=== PATIENT | female | born 1990 | race American Indian/Alaskan Native ===

== ENCOUNTER 2019-08-18 01:39 | Emergency (ER) | payer SELFPAY ==
[2019-08-18] MEDS ORDERED: Ondansetron 4 MG/2 ML SDV IVPUSH ONE (02:43)
[2019-08-18] MEDS ORDERED: Sodium Chloride 0.9% 1,000 ML IV SCH (02:45)
--- NOTE | 2019-08-18 02:51 | EDM.PDOC ---
ED HPI GENERAL MEDICAL PROBLEM - General Chief Complaint: Abdominal Pain Stated Complaint: RIGHT SIDE PAIN Time Seen by Provider: 08/18/19 01:49 Source of Information: Reports: Patient, Family () History Limitations: Reports: No Limitations - History of Present Illness INITIAL COMMENTS - FREE TEXT/NARRATIVE: Mrs. Vasquez is a very pleasant 28-year-old woman with no chronic medical issues, on no medications, with no history of surgery, who states that she developed right upper quadrant pain radiating through to her right flank around 21:00 last night. She took some Tylenol around that time. She went to sleep, but was woken up with the same pain, only much more severe, around 01:00. She had nausea and emesis around that time. She states that her pain persisted until just prior to my entering her room, when she felt a "pop", and since then, her pain has been decreasing. The patient has not had a recent fever or urinary symptoms. She reports similar symptoms a few days ago, although not as severe. She took aspirin, and her symptoms resolved after around 30 minutes. The patient states that she ate dinner, consisting of pizza and tater tots, around 19:30 to 20:00 last night. She has not had anything to eat since. The patient does not have a PCP. She has not received an influenza vaccine this season, but is willing to receive one here. Right Upper Abdominal Pain Score (Numeric/FACES): 9 - Related Data Allergies Allergy/AdvReac Type Severity Reaction Status Date / Time No Known Allergies Allergy Verified 08/18/19 01:48 Home Meds: Home Meds . [No Known Home Meds] 08/18/19 [History] Past Medical History Endocrine/Metabolic History: Reports: Obesity/BMI 30+ Social & Family History - Tobacco Use Smoking Status *Q: Never Smoker - Alcohol Use Alcohol Use History: Yes Alcohol Use Frequency: Socially (occasionally to excess) - Recreational Drug Use Recreational Drug Use: Yes Drug Use in Last 12 Months: Yes Recreational Drug Type: Reports: Marijuana/Hashish (last smoked Jul 2019) - Living Situation & Occupation Living situation: Reports: , with Spouse, with Family (3 kids, sister) Occupation: Unemployed ED ROS GENERAL - Review of Systems Review Of Systems: Comprehensive ROS is negative, except as noted in HPI. ED EXAM, GI/ABD - Physical Exam Exam: See Below Exam Limited By: No Limitations General Appearance: Alert, WD/WN, No Apparent Distress Eyes: Bilateral: Normal Appearance, EOMI Ears: Normal External Exam, Hearing Grossly Normal Nose: Normal Inspection Throat/Mouth: Normal Inspection, Normal Lips, Normal Voice, No Airway Compromise Head: Atraumatic, Normocephalic Neck: Normal Inspection, Full Range of Motion Respiratory/Chest: No Respiratory Distress, Lungs Clear, Normal Breath Sounds, No Accessory Muscle Use Cardiovascular: Normal Peripheral Pulses, Regular Rate, Rhythm, No Edema, No Gallop, No JVD, No Murmur, No Rub GI/Abdominal Exam: Normal Bowel Sounds, Soft, No Organomegaly, No Distention, No Abnormal Bruit, No Mass, Tender (Right upper quadrant, extending to the epigastrium, only. Nontender elsewhere. Howard's sign negative.) (Female) Exam: Deferred Rectal (Female) Exam: Deferred Back Exam: Normal Inspection, Full Range of Motion. No: CVA Tenderness (L), CVA Tenderness (R) Extremities: Normal Inspection, Normal Range of Motion, No Pedal Edema, Normal Capillary Refill Neurological: Alert, Oriented, Normal Cognition, No Motor/Sensory Deficits Psychiatric: Normal Affect Skin Exam: Warm, Dry, Intact, Normal Color, No Rash Course - Vital Signs Last Recorded V/S: Last Vital Signs Temp 36.6 C 08/18/19 01:46 Pulse 90 08/18/19 01:46 Resp 16 08/18/19 01:46 BP 124/84 08/18/19 01:46 Pulse Ox 99 08/18/19 01:46 - Orders/Labs/Meds Orders: Active Orders 24 hr Category Date Time Status Influenza Vaccine Charge [RC] .DISCHARGE Care 08/18/19 02:47 Active Abdomen Ltd [US] Stat Exams 08/18/19 02:45 Taken Abdomen Pelvis w Cont [CT] Stat Exams 08/18/19 02:43 Taken Pharmacy to Dose - InFluenza V [Pharmacy to Dose - Med 08/18/19 02:47 Pending InFluenza Vaccine] 1 each IM ONETIME ONE Sodium Chloride 0.9% [Normal Saline] 1,000 ml Med 08/18/19 02:45 Active IV ASDIRECTED Medication Orders Sodium Chloride (Normal Saline) 1,000 mls @ 150 mls/hr IV ASDIRECTED SHARONA Last Admin: 08/18/19 02:58 Dose: 150 mls/hr Influenza Virus Vaccine (Pharmacy To Dose - Influenza Vaccine) 1 each IM ONETIME ONE Stop: 08/18/19 02:48 Labs: Laboratory Tests 08/18/19 08/18/19 08/18/19 Range/Units 02:56 02:56 02:56 WBC 10.05 H (3.98-10.04) K/mm3 RBC 4.38 (3.98-5.22) M/mm3 Hgb 12.5 (11.2-15.7) gm/dl Hct 37.7 (34.1-44.9) % MCV 86.1 (79.4-94.8) fl MCH 28.5 (25.6-32.2) pg MCHC 33.2 (32.2-35.5) g/dl RDW Std Deviation 37.9 (36.4-46.3) fL Plt Count 270 (182-369) K/mm3 MPV 8.8 L (9.4-12.3) fl Neutrophils % (Manual) 61 H (40-60) % Band Neutrophils % 1 (0-10) % Lymphocytes % (Manual) 35 (20-40) % Atypical Lymphs % 0 % Monocytes % (Manual) 3 (2-10) % Eosinophils % (Manual) 0 L (0.7-5.8) % Basophils % (Manual) 0 L (0.1-1.2) Platelet Estimate Adequate Plt Morphology Comment Normal RBC Morph Comment Normal Sodium 139 (136-145) mEq/L Potassium 3.7 (3.5-5.1) mEq/L Chloride 106 (98-107) mEq/L Carbon Dioxide 24 (21-32) mEq/L Anion Gap 12.7 (5-15) BUN 10 (7-18) mg/dL Creatinine 0.7 (0.55-1.02) mg/dL Est Cr Clr Drug Dosing 98.09 mL/min Estimated GFR (MDRD) > 60 (>60) mL/min BUN/Creatinine Ratio 14.3 (14-18) Glucose 150 H (74-106) mg/dL Calcium 8.5 (8.5-10.1) mg/dL Total Bilirubin 0.2 (0.2-1.0) mg/dL AST 13 L (15-37) U/L ALT 28 (14-59) U/L Alkaline Phosphatase 104 (46-116) U/L Total Protein 7.7 (6.4-8.2) g/dl Albumin 3.5 (3.4-5.0) g/dl Globulin 4.2 gm/dL Albumin/Globulin Ratio 0.8 L (1-2) Lipase 105 (73-393) U/L HCG, Quant < 1.0 mIU/mL Meds: Medications Generic Name Dose Route Start Last Admin Trade Name Freq PRN Reason Stop Dose Admin Sodium Chloride 1,000 mls @ 150 mls/hr 08/18/19 02:45 08/18/19 02:58 Normal Saline IV 150 mls/hr ASDIRECTED SHARONA Administration Influenza Virus Vaccine 1 each 08/18/19 02:47 Pharmacy To Dose - Influenza Vaccine IM 08/18/19 02:48 ONETIME ONE Discontinued Medications Generic Name Dose Route Start Last Admin Trade Name Freq PRN Reason Stop Dose Admin Influenza Virus Vaccine 60 mcg 08/18/19 03:00 Fluzone Quad [id number] Syringe IM 08/18/19 03:01 .ONCE ONE Ondansetron HCl 4 mg 08/18/19 02:43 08/18/19 02:58 Zofran IVPUSH 08/18/19 02:44 4 mg ONETIME ONE Administration - Re-Assessments/Exams Free Text/Narrative Re-Assessment/Exam: 08/18/19 02:46 Clinically, I suspect that the patient passed a gallstone. I have ordered an ultrasound of the right upper quadrant to evaluate for gallstones, and, if we' re oseas, evidence of cholecystitis. As soon as that is done, the patient can begin drinking oral contrast for a CT scan of her abdomen and pelvis that can rule out other etiologies. Blood work has been ordered. In the meantime, the patient will receive IV fluid and IV Zofran. She declined an offer for pain medication. 08/18/19 03:47 Notified by the emergency medical technician/driver that the gallbladder was not well visualized, either because it is full of gallstones or because the red are calcified. 08/18/19 04:17 Ultrasound of the right upper quadrant is read by Atilio as "There is a wall echo shadow sign of the gallbladder indicating either a large gallstone or multiple small gallstones filling the lumen of the gallbladder." The patient's CBC is remarkable for a WBC count slightly elevated at 10.05, but with 1% bandemia and 61% neutrophilia. The remainder of her CBC is unremarkable. Her CMP is remarkable for a blood glucose elevated at 150, with the remainder of her CMP being unremarkable. Her lipase is within normal limits at 105. Her quantitative hCG is undetectably low. 08/18/19 05:17 CT of the abdomen and pelvis with oral and IV contrast is read by [facility] as "Gallbladder wall thickening with probable gallstones and findings consistent with acute cholecystitis." 08/18/19 05:[address] Wu at 05:26. He would like me to give the patient a dose of Zosyn and continue the IV fluid. He will come to the ED later this morning to evaluate the patient, with the intention of taking her to the OR for a cholecystectomy later today. 08/18/19 05:32 The above was discussed with the patient. She agrees with the plan. Departure - Departure Time of Disposition: 05:34 Disposition: DC/Tfer to [facility] Access [facility] Condition: Good Clinical Impression: Acute cholecystitis - Discharge Information *PRESCRIPTION DRUG MONITORING PROGRAM REVIEWED*: Not Applicable *COPY OF PRESCRIPTION DRUG MONITORING REPORT IN PATIENT ANAND: Not Applicable Referrals: PCP,None [Primary Care Provider] - Forms: ED Department Discharge Sepsis Event Note - Evaluation Sepsis Screening Result: No Definite Risk - Focused Exam Vital Signs: Vital Signs Temp Pulse Resp BP Pulse Ox 08/18/19 01:46 36.6 C 90 16 124/84 99 Date Exam was Performed: 08/18/19 Time Exam was Performed: 05:17 - My Orders Last 24 Hours: My Active Orders 08/18/19 02:43 Abdomen Pelvis w Cont [CT] Stat 08/18/19 02:45 Abdomen Ltd [US] Stat Sodium Chloride 0.9% [Normal Saline] 1,000 ml IV ASDIRECTED 08/18/19 02:47 Influenza Vaccine Charge [RC] .DISCHARGE Pharmacy to Dose - InFluenza V [Pharmacy to Dose - InFluenza Vaccine] 1 each IM ONETIME ONE - Assessment/Plan Last 24 Hours: My Active Orders 08/18/19 02:43 Abdomen Pelvis w Cont [CT] Stat 08/18/19 02:45 Abdomen Ltd [US] Stat Sodium Chloride 0.9% [Normal Saline] 1,000 ml IV ASDIRECTED 08/18/19 02:47 Influenza Vaccine Charge [RC] .DISCHARGE Pharmacy to Dose - InFluenza V [Pharmacy to Dose - InFluenza Vaccine] 1 each IM ONETIME ONE
[2019-08-18] MEDS ORDERED: FLU Vacc QS2019-20(6MOS+)/PF 60 MCG/0.5 ML SYRINGE IM ONE (03:00)
[2019-08-18] MEDS ORDERED: Piperacillin/Tazobactam 4.5 GM in Sodium Chloride 0.9% 100 ML IV STA (05:32)
[2019-08-18] MEDS ORDERED: Lactated Ringers 1,000 ML IV SCH (05:45)
--- NOTE | 2019-08-18 07:19 | US ---
Limited abdominal ultrasound: Multiple real-time images of the upper right abdomen were obtained. Shadowing noted within the gallbladder fossa compatible with contracted gallbladder around gallstones. Gallbladder wall appears slightly thickened. Liver shows no focal abnormality. No biliary duct dilatation is seen. Right kidney shows no hydronephrosis or mass. Right kidney has a length of 11.5 cm. Pancreas is incompletely seen. Visualized portions of the pancreas appear within normal limits. Inferior vena cava is patent. Portal vein shows normal hepatopedal flow. Impression: 1. Shadowing within the gallbladder fossa compatible with contracted gallbladder around gallstones. Gallbladder wall is mildly thickened. No biliary duct dilatation is seen. 2. No additional abnormality is identified on right upper quadrant abdominal ultrasound. Diagnostic code #3 This report was dictated in [place] Standard Time I agree with preliminary report from [facility], finalized on 08/18/19, 4:48 AM Central Time
--- NOTE | 2019-08-18 07:19 | CT ---
CT abdomen and pelvis Technique: Multiple axial sections were obtained from above the dome of the diaphragm inferiorly through the pubic symphysis. Intravenous contrast and oral contrast was utilized. Delayed images were also obtained through the bladder. Comparison: No prior CT imaging, right upper quadrant abdominal ultrasound performed earlier on the same day (3:13 AM). Findings: Visualized lung bases show nothing acute. Liver contains no focal abnormality. Gallbladder shows slight wall edema. Pancreas is within normal limits. Adrenal glands show no nodule. Kidneys show symmetric contrast enhancement without hydronephrosis or mass. Spleen appears within normal limits. Aorta shows no aneurysm. No retroperitoneal adenopathy or mesenteric abnormalities are seen. Appendix is seen which is normal in size. No pelvic mass or adenopathy is seen. No free fluid or inflammatory change is seen. Delayed images show contrast within the distal ureters and within the bladder. Bone window settings were reviewed. No acute osseous abnormality is seen. Small fat-containing umbilical hernia is noted. Impression: 1. Slight gallbladder wall edema. 2. No additional abnormality is appreciated on CT study of the abdomen and pelvis. Diagnostic code #3 This report was dictated in [place] Standard Time I agree with preliminary report from [facility], finalized on 08/18/19, 6:09 AM Central Time
== END 2019-08-18 08:35 | disposition critical access hospital (66) ==
LOC: JD.ED 01:39
DX: K81.0 Acute cholecystitis (principal)
CPT/HCPCS: 36415; 74177; 76705; 80053; 83690; 84702; 85007; 85027; 90686; 96361; 96365; 96375; 99284; J2405; J2543; J7030; J7050; J7120

== ENCOUNTER 2019-08-18 12:25 | Day surgery (SDC) | payer OTHER ==
--- NOTE | 2019-08-18 10:23 | PCM.PREANE ---
Preanesthetic Assessment - Anesthesia/Transfusion/Family Hx Anesthesia History: No Prior Anesthesia Family History of Anesthesia Reaction: No Transfusion History: No Prior Transfusion(s) Intubation History: Unknown - Review of Systems Pulmonary: No Symptoms (ETOH: socially, July 2019 Marijuana) Cardiovascular: No Symptoms Gastrointestinal: No Symptoms (0200 N/V, only currently slightly nauseated), Abdominal Pain (rated:8/10), Diarrhea, Nausea, Vomiting Neurological: No Symptoms, Headache (migraines) Other: Reports: None - Physical Assessment NPO Status Date: 08/17/19 NPO Status Time: 20:00 Vital Signs: HR: 94 Sat: 99% Temp: 36.6 Resp: 16 BP: 145/87 Height: 1.6 m Weight: 88.904 kg ASA Class: 2 Mental Status: Alert & Oriented x3 Airway Class: Mallampati = 2 Dentition: Reports: Normal Dentition, Caries Thyro-Mental Finger Breadths: 3 Mouth Opening Finger Breadths: 3 ROM/Head Extension: Full Lungs: Clear to Auscultation, Normal Respiratory Effort Cardiovascular: Regular Rate, Regular Rhythm, No Murmurs - Lab Values: All labs reviewed and noted and within acceptable ranges to proceed with scheduled procedure. - Allergies Allergies/Adverse Reactions: Allergies Allergy/AdvReac Type Severity Reaction Status Date / Time No Known Allergies Allergy Verified 08/18/19 01:48 - Anesthesia Plan Pre-Op Medication Ordered: None - Acknowledgements Anesthesia Type Planned: General Anesthesia Pt an Appropriate Candidate for the Planned Anesthesia: Yes Alternatives and Risks of Anesthesia Discussed w Pt/Guardian: Yes Pt/Guardian Understands and Agrees with Anesthesia Plan: Yes PreAnesthesia Questionnaire - Past Health History Medical/Surgical History: Denies Medical/Surgical History Endocrine/Metabolic History: Reports: Obesity/BMI 30+ - HOME MEDS Home Medications: Home Meds . [No Known Home Meds] 08/18/19 [History] - CURRENT (IN HOUSE) MEDS Current Meds: Current Medications Lactated Ringer's (Ringers, Lactated) 1,000 mls @ 125 mls/hr IV ASDIRECTED SHARONA Lidocaine/Sodium Bicarbonate (Buffered Lidocaine 1% In Ns 8.4%) 0.25 ml IDERM ONETIME PRN PRN Reason: Prior to IV Start Sodium Chloride (Saline Flush) 10 ml FLUSH ASDIRECTED PRN PRN Reason: Keep Vein Open
[~2019-08-18 12:25] MED LIST: Dexamethasone 4 MG/ML 5 ML MDV ONE; HYDROmorphone 0.5 MG/0.5 ML Syringe ONE; Ketorolac 30 MG/ML SDV ONE; Lactated Ringers 1,000 ML IV SCH; Lactated Ringers 1,000 ML ONE; Lidocaine 1% 6 ML ONE; Lidocaine 1%/Sod Bicarbonate in NS 8.4% 1 ML Syringe IDERM PRN; Midazolam 1 MG/ML 2 ML SDV ONE; Ondansetron 4 MG/2 ML SDV ONE; Propofol 200 MG/20 ML SDV ONE; Rocuronium 100 MG/10 ML MDV ONE; Sodium Chloride 0.9% 10 ML Syringe FLUSH PRN; ceFAZolin 1 GM Vial ONE; fentaNYL 250 MCG/5 ML SDV ONE
--- NOTE | 2019-08-18 12:42 | PCM.HP.2 ---
H&P History of Present Illness - General Date of Service: 08/18/19 Admit Problem/Dx: acute cholecystitis Source of Information: Patient History Limitations: Reports: No Limitations - History of Present Illness Onset of Symptoms: Reports: Today Duration of Symptoms: Reports: Hour(s):, Getting Worse Location: Reports: Abdomen Quality: Reports: Pressure, Sharp Severity: Severe Associated Symptoms: Reports: No Other Symptoms - Related Data Allergies/Adverse Reactions: Allergies Allergy/AdvReac Type Severity Reaction Status Date / Time No Known Allergies Allergy Verified 08/18/19 01:48 Home Medications: Home Meds . [No Known Home Meds] 08/18/19 [History] Past Medical History - Past Health History Medical/Surgical History: Denies Medical/Surgical History Endocrine/Metabolic History: Reports: Obesity/BMI 30+ Social & Family History - Living Situation & Occupation Living situation: Reports: , with Spouse, with Family (3 kids, sister) Occupation: Unemployed H&P Review of Systems - Review of Systems: Review Of Systems: See Below General: Reports: No Symptoms HEENT: Reports: No Symptoms Pulmonary: Reports: No Symptoms Cardiovascular: Reports: No Symptoms Gastrointestinal: Reports: Abdominal Pain Genitourinary: Reports: No Symptoms Musculoskeletal: Reports: No Symptoms Skin: Reports: No Symptoms Psychiatric: Reports: No Symptoms Neurological: Reports: No Symptoms Hematologic/Lymphatic: Reports: No Symptoms Immunologic: Reports: No Symptoms Exam - Exam Exam: See Below - Exam General: Alert, Oriented HEENT: Conjunctiva Clear Neck: Supple Lungs: Clear to Auscultation Cardiovascular: Regular Rate GI/Abdominal Exam: Soft, Tender (Female) Exam: Deferred Rectal (Female) Exam: Deferred Back Exam: Normal Inspection Extremities: Normal Inspection Skin: Warm, Dry Neuro Extensive - Mental Status: Alert, Oriented x3 Neuro Extensive - Motor, Sensory, Reflexes: Normal Gait Psychiatric: Alert, Normal Affect *Q Meaningful Use (ADM) - VTE Risk Assess *Q Each Risk Factor Represents 1 Point: Minor Surgery Planned Total Score 1 Point Risk Factors: 1 Problem List Initiated/Reviewed/Updated: Yes Orders Last 24hrs: Active Orders 24 hr Category Date Time Status Peripheral IV Care [RC] . DIRECTED Care 08/18/19 10:20 Active Verify Patient Consent Obtain [RC] ASDIRECTED Care 08/18/19 10:20 Active Lactated Ringers [Ringers, Lactated] 1,000 ml Med 12/18/19 10:30 Active IV ASDIRECTED Lidocaine 1%/Sod Bicarbonate [Buffered Lidocaine 1% in Med 08/18/19 10:20 Active NS 8.4%] 0.25 ml IDERM ONETIME PRN Sodium Chloride 0.9% [Saline Flush] Med 08/18/19 10:20 Active 10 ml FLUSH ASDIRECTED PRN Medication Administration Instruction [OM.PC] Routine Oth 08/18/19 10:20 Ordered Peripheral IV Insertion Adult [OM.PC] Routine Oth 08/18/19 10:20 Ordered Schedule Procedure [COMM] Routine Oth 08/18/19 12:31 Ordered Medication Orders Lactated Ringer's (Ringers, Lactated) 1,000 mls @ 125 mls/hr IV ASDIRECTED SHARONA Stop: 08/18/19 23:00 Lidocaine/Sodium Bicarbonate (Buffered Lidocaine 1% In Ns 8.4%) 0.25 ml IDERM ONETIME PRN PRN Reason: Prior to IV Start Stop: 08/18/19 23:00 Sodium Chloride (Saline Flush) 10 ml FLUSH ASDIRECTED PRN PRN Reason: Keep Vein Open Stop: 08/18/19 23:00 Assessment/Plan Comment:: acute calculous cholecystitis- plan for OR, laparoscopic cholecystectomy. - Mortality Measure Prognosis:: Good
[2019-08-18] MEDS: Bupivacaine 0.5%/EPINEPHrine 1:200,000 50 ML MDV ONE ×2 (13:07→13:39)
[2019-08-18] MEDS ORDERED: fentaNYL 100 MCG/2 ML SDV ONE ×2 (13:42→14:02)
[2019-08-18] MEDS ORDERED: HYDROmorphone 0.5 MG/0.5 ML Syringe ONE (13:42)
[2019-08-18] MEDS ORDERED: HYDROmorphone 0.5 MG/0.5 ML Syringe IVPUSH PRN (13:50)
[2019-08-18] MEDS ORDERED: Ondansetron 4 MG/2 ML SDV IVPUSH PRN (13:50)
[2019-08-18] MEDS ORDERED: fentaNYL 100 MCG/2 ML SDV IVPUSH PRN (13:50)
--- NOTE | 2019-08-18 14:43 | PCM.POSTAN ---
POST ANESTHESIA ASSESSMENT - MENTAL STATUS Mental Status: Alert, Oriented - VITAL SIGNS Vital Signs: Last Vital Signs Temp 36.7 C 08/18/19 12:30 Pulse 94 08/18/19 12:30 Resp 16 08/18/19 12:30 BP 145/87 H 08/18/19 12:30 Pulse Ox 98 08/18/19 12:30 - RESPIRATORY Respiratory Status: Respiratory Rate WNL, Airway Patent, O2 Saturation Stable - CARDIOVASCULAR CV Status: Pulse Rate WNL, Blood Pressure Stable - GASTROINTESTINAL GI Status: No Symptoms - PAIN Pain Score: 0 - POST OP HYDRATION Hydration Status: Adequate & Stable
--- NOTE | 2019-08-18 14:54 | PCM48HPAN ---
Post Anesthesia Note - EVALUATION WITHIN 48HRS OF ANESTHETIC Vital Signs in Normal Range: Yes Patient Participated in Evaluation: Yes Respiratory Function Stable: Yes Airway Patent: Yes Cardiovascular Function Stable: Yes Hydration Status Stable: Yes Pain Control Satisfactory: Yes Nausea and Vomiting Control Satisfactory: Yes Mental Status Recovered: Yes Vital Signs: Last Vital Signs Temp 36.5 C 08/18/19 14:45 Pulse 106 H 08/18/19 14:45 Resp 15 08/18/19 14:45 BP 138/73 08/18/19 14:45 Pulse Ox 96 08/18/19 14:45
--- NOTE | 2019-08-18 16:01 | PCM.PRNOTE ---
- Free Text/Narrative Note: Laparoscopic Cholecystectomy Operative Report Operation: laparoscopic cholecystectomy Date: 08/18/2019 Attending Surgeon: Julian Wu MD Indication for Surgery:acute cholecystitis Preoperative antibiotics: 2 g Ancef IV VTE prophylaxis: SCDs Estimated Blood Loss: 10 cc Findings: large acutely inflamed gallbladder with stones and sludge. Diminutive cystic artery taken with hook cautery. critical view obtained. Detailed Report: The patient underwent general endotracheal anesthesia after being placed supine on the operating table and initial timeout. The abdomen was prepped and draped in sterile fashion. A pre-incision timeout was performed confirming the patient s identity and the operation to be performed. A Veress needle was inserted into the abdominal cavity below the left costal margin along the mid-clavicular line. The abdomen was insufflated with CO2 to 15 mm Hg. Gas was aspirated below the umbilicus with a syringe in order to ensure safe placement of a 5 mm bladed laparoscopic port. The 5mm 30 degree laparoscope was then inserted and viscera inspected. The gallbladder appeared acutely inflamed. Two additional 5 mm ports were placed along the right subcostal region under direct vision with the laparoscope, and a 12 mm port was placed at the subxiphoid region. The gallbladder was grasped at the fundus with a locking grasper and retracted anteriorly and superiorly, exposing the infundibulum. This was grasped with the surgeons left hand grasper and retracted laterally. The hook electrode was used to open the overlying peritoneum, and this plane of dissection was developed along the edges of the gallbladder at its interface with the liver bed. A combination of hook electrode, blunt dissection with the suction pipe insulator helper and laparoscopic Kittner dissector, and the [place] grasper were used to carefully expose and skeletonize the cystic duct. Calot node was identified and carefully dissected with hook cautery; as dissection progressed, it was clear that the arterial supply to the gallbladder was diminutive and taken during this portion of dissection with cautery. There was no hemorrhage noted. A critical view of safety was obtained. Hemolock clips were then placed on the cystic duct; two each on the stay side and one each on the specimen side. The duct was transected with laparoscopic scissors. The hook was then used to dissect the gallbladder free from its attachment to the liver. The specimen was then placed in an Endocatch bag and removed through the subxiphoid port. The liver bed was inspected and appeared hemostatic. The larger subxiphoid port was closed at the level of the fascia with vicryl suture using the PMI laparoscopic suture passer. Pneumoperitoneum was then released. All skin incisions were then closed with placement of subcuticular vicryl suture and dressed with dermabond. A total of 20 cc 0.5% marcaine with epinephrine was used for local anesthesia at the incision sites. The patient tolerated the operation well, was extubated in the operating room and transferred to the PACU for routine post-anesthesia care. Julian Wu MD General Surgery
== END 2019-08-18 18:35 | disposition home or self-care (01) ==
LOC: JD.SDS 12:25
PROVIDERS: ATTEND Surgery
DX: K80.10 Calculus of gallbladder with chronic cholecystitis without obstruction (principal); E66.9 Obesity, unspecified; Z68.32 Body mass index [BMI] 32.0-32.9, adult
CPT/HCPCS: 47562; J0690; J1100; J1170; J2001; J2250; J2405; J2704; J3010; J3490; J7120; 00790; J1885